=== PATIENT | female | born 1970 | race Caucasian/White ===

== ENCOUNTER 2020-10-03 13:30 | Emergency (ER) | payer OTHER, SELFPAY ==
--- NOTE | ~2020-10-03 | CT_ITS ---
EXAMINATION: CT BRAIN W/O DATE: 10/03/2020 14:56 INDICATION: Head injury TECHNIQUE: Computed tomography (CT) of the head was performed without intravenous contrast. The dose- length product was 529.67 mGy-cm. Automated exposure control and iterative reconstruction technique w ere employed. COMPARISON: No prior studies for comparison. FINDINGS: Normal brain parenchymal volume for age. Normal prasad-white differentiation. No acute intrac ranial hemorrhage, infarction, mass or mass effect. There is a small left frontal scalp hematoma. No underlying skull fracture. No ventriculomegaly or midline shift. Midline sagittal images demonstrate a normal corpus callosum, c raniovertebral junction and sella turcica. Basilar cisterns are patent. Paranasal sinuses and mastoids are pneumatized. No depressed skull fractures. IMPRESSION: 1. No acute intracranial abnormality. Reviewed, dictated and finalized at location B. [employer]
[2020-10-03 13:33] VITALS: BP 156/94; PULSE 94; RESP 18; TEMP 36.6; O2SAT 100
[2020-10-03] MEDS: ACETAMINOPHEN 500 MG TABLET 1000 MG PO (14:36)
--- NOTE | 2020-10-03 14:44 | PC.NURSE ---
Pt declined ice pack, states The cold makes it worse, walking in here it was cold outside and it made my head feel a lot worse. I'm not using that.
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
--- NOTE | 2020-10-03 14:54 | PC.NURSE ---
Pt to CT scan via W/C.
[2020-10-03 15:13] VITALS: BP 144/77; PULSE 90; RESP 15; O2SAT 98
== END 2020-10-03 15:14 | disposition home or self-care (01) ==
PROVIDERS: Emergency Provider Emergency Medicine
DX: S09.90XA Unspecified injury of head, initial encounter (principal); I25.10 Atherosclerotic heart disease of native coronary artery without angina pectoris; E78.5 Hyperlipidemia, unspecified; I10 Essential (primary) hypertension; Z95.5 Presence of coronary angioplasty implant and graft; F17.200 Nicotine dependence, unspecified, uncomplicated; Y00.XXXA Assault by blunt object, initial encounter
CPT/HCPCS: 70450; 99284; A9270

== ENCOUNTER 2024-05-06 20:22 | Emergency (ER) | payer OTHER, SELFPAY ==
[2024-05-06 20:23] VITALS: BP 183/87; PULSE 88; RESP 17; TEMP 36.7; O2SAT 98
--- NOTE | 2024-05-06 20:47 | PC.NURSE ---
Patient states that she can't open her eye to do the visual acuity exam at this time.
--- NOTE | 2024-05-06 22:35 | ED.EYEPROB ---
HPI - Eye Problem General Chief complaint: Eye Problems Stated complaint: something in my right eye Time Seen by Provider: 05/06/24 22:25 Source: patient Limitations: no limitations History of Present Illness HPI Narrative: Patient is a 53-year-old female presents to the emergency department complaining of right eye irritation, notes that she is a contact wearer, started last night when she was taking her contacts out, hasn't worn contacts since, notes that it is hard to open her eye because it is so uncomfortable. Patient denies any marked vision changes when she is able to open up her eye. Patient denies any thick discharge rather she has had a lot of watering coming from her right eye. Related Data Home Medications Medication Instructions Recorded Confirmed clopidogrel 75 mg tablet 10/03/20 10/03/20 lisinopril 10 mg tablet 10/03/20 metoprolol tartrate 25 mg tablet 10/03/20 rosuvastatin 20 mg tablet mg 10/03/20 Allergies Allergy/AdvReac Type Severity Reaction Status Date / Time ibuprofen Allergy Mild HIVES Verified 10/03/20 14:30 ketorolac AdvReac Mild ITCHING Verified 10/03/20 14:30 codeine AdvReac Unknown NAUSEA Verified 10/03/20 14:30 Review of Systems Review of Systems: A 10 system review of systems was completed on the patient and is negative except for what is stated in the HPI. Nursing and ancillary documentation was reviewed. [facility] Past Medical History Medical History (Updated 05/07/24 @ 00:00 by Felisa Queen) Coronary artery disease Hyperlipidemia Hypertension Surgical History Surgical History (Updated 10/03/20 @ 14:54 by Jaskaran Olsen, IDALIAC) History of coronary artery stent placement Social History Social History (Updated 10/03/20 @ 14:54 by Jaskaran Olsen, PA-C) Smoking status: Current every day smoker Gender identity (if verbalized by the patient): Female Comments At time of signature, I have reviewed and agree with nursing past medical, surgical, social and family history unless otherwise noted. Please see the nursing chart for further information. There is no relevant family history pertinent to the presenting complaint. Exam Narrative: CONST: No acute distress. Well nourished. HENMT: Head is normocephalic and atraumatic. Moist mucous membranes. EYES: Pupils equal round reactive to light. Extraocular motions are intact. No subconjunctival hemorrhage bilaterally. No proptosis or enophthalmos or hyphema or hypopyon bilaterally. No efferent pupillary defect. Eyelid/under eyelids are normal. Right cornea has fluorescein uptake over the midline spanning approximately 2 mm. Negative Otoniel sign. No consensual photophobia. NECK: No meningeal signs. RESP: Able to speak in full sentences. Normal respiratory effort. CARDIO: Regular rate. Regular rhythm. GI: Nondistended. SKIN: No rashes or lesions noted on exposed skin. NEURO: Oriented x3. Moves all extremities. EXTREM/MSK/BACK: No pedal edema. PSYCH: Normal affect. Course Vital Signs Vital signs: Vital Signs Temperature 98.1 F 05/06/24 20:23 Pulse Rate 88 05/06/24 20:23 Respiratory Rate 17 05/06/24 20:23 Blood Pressure 183/87 H 05/06/24 20:23 Pulse Oximetry 98 05/06/24 20:23 Oxygen Delivery Room Air 05/06/24 20:23 Temperature 97.6 F 05/06/24 23:01 Pulse Rate 92 05/06/24 23:01 Respiratory Rate 18 05/06/24 23:01 Blood Pressure 158/82 H 05/06/24 23:01 Pulse Oximetry 97 05/06/24 23:01 Oxygen Delivery Room Air 05/06/24 20:23 MDM - Eye Problem MDM Narrative Medical decision making narrative: Patient presents with the above complaint. Initial vitals are remarkable for no significant abnormalities. Physical examination as noted above. Plan discussed: Anesthetic eye drops, fluorescein staining, visual acuity. Patient found to have a corneal abrasion, patient is a contact lens wearer, patient prescribed antibiotic eyedrops, instructed to d
[2024-05-06] MEDS: CIPROFLOXACIN HCL 0.3% OP SOLN 2.5 ML BTL 2 DROP RIGHT EYE (22:54)
[2024-05-06 23:01] VITALS: BP 158/82; PULSE 92; RESP 18; TEMP 36.4; O2SAT 97
== END 2024-05-06 23:03 | disposition home or self-care (01) ==
LOC: ANHED 22:52
PROVIDERS: Emergency Provider Student in an Organized Health Care Education/Training Program
DX: S05.01XA Injury of conjunctiva and corneal abrasion without foreign body, right eye, initial encounter (principal); I25.10 Atherosclerotic heart disease of native coronary artery without angina pectoris; E78.5 Hyperlipidemia, unspecified; I10 Essential (primary) hypertension; F17.200 Nicotine dependence, unspecified, uncomplicated
CPT/HCPCS: 99283